=== PATIENT | female | born 1990 ===

== ENCOUNTER 2017-04-25 09:50 | Emergency (ER) | payer MEDICAID ==
[2017-04-25 09:54] VITALS: BMI 21.1
[2017-04-25 09:55] VITALS: BP 100/69; PULSE 77; RESP 17; TEMP 97.8; O2SAT 100
--- NOTE | 2017-04-25 10:49 | ED PDOC ---
HPI: Abdomen Time Seen by Provider: 04/25/17 09:59 Chief Complaint (Nursing): Abdominal Pain Chief Complaint (Provider): Suprapubic cramping History Per: Patient History/Exam Limitations: no limitations Onset/Duration Of Symptoms: Days Outside of [place] travel?: No Current Symptoms Are (Timing): Still Present Location Of Pain/Discomfort: Suprapubic Additional Complaint(s): 26 yo presents with suprapubic pain/cramping for a few days. Pt denies vaginal bleeding. Pt states she also has been nauseous intermittently. Pts LMP was NOV and she reports abnormal menses. PT states once she did not get menses for an entire year. Pt states she is sexually active and did not take a test at home. No urinary symptoms, no back pain. No vaginal discharge. Past Medical History Reviewed: Historical Data, Nursing Documentation, Vital Signs Vital Signs: Last Vital Signs Temp 97.8 F 04/25/17 09:54 Pulse 77 04/25/17 09:54 Resp 17 04/25/17 09:54 BP 100/69 04/25/17 09:54 Pulse Ox 100 04/25/17 10:53 - Medical History PMH: No Chronic Diseases - Surgical History Surgical History: No Surg Hx - Family History Family History: States: Unknown Family Hx - Living Arrangements Living Arrangements: With Family - Social History Current smoker - smoking cessation education provided: No - Immunization History Hx Tetanus Toxoid Vaccination: No Hx Influenza Vaccination: No Hx Pneumococcal Vaccination: No - Home Medications Home Medications: Ambulatory Orders Medication Instructions Recorded Ibuprofen 600 mg PO Q8 #30 tab 07/14/15 Naproxen [Naprosyn] 1 tab PO BID PRN #25 tab 12/10/15 - Allergies Allergies/Adverse Reactions: Allergies Allergy/AdvReac Type Severity Reaction Status Date / Time No Known Allergies Allergy Verified 12/10/15 23:02 Review of Systems ROS Statement: Except As Marked, All Systems Reviewed And Found Negative Constitutional: Negative for: Fever, Chills Gastrointestinal: Positive for: Nausea Genitourinary Female: Positive for: Pelvic Pain Physical Exam - Reviewed Nursing Documentation Reviewed: Yes Vital Signs Reviewed: Yes - Physical Exam Appears: Positive for: Well, Non-toxic, No Acute Distress Head Exam: Positive for: ATRAUMATIC, NORMAL INSPECTION, NORMOCEPHALIC Skin: Positive for: Normal Color, Warm, DRY Eye Exam: Positive for: Normal appearance ENT: Positive for: Normal ENT Inspection Neck: Positive for: Normal, Painless ROM Cardiovascular/Chest: Positive for: Regular Rate, Rhythm Respiratory: Positive for: CNT, Normal Breath Sounds Gastrointestinal/Abdominal: Positive for: Normal Exam, Bowel Sounds, Soft. Negative for: Tenderness Back: Positive for: Normal Inspection Extremity: Positive for: Normal ROM Neurologic/Psych: Positive for: Alert, Oriented - Laboratory Results Result Diagrams: 04/25/17 11:32 04/25/17 11:32 - ECG O2 Sat by Pulse Oximetry: 100 Medical Decision Making Medical Decision Makin - Urine result given to provider. (+) . New orders placed. US - 10 weeks and 4-6 days Urine without signs of infection, urine culture ordered. Disposition - Clinical Impression Clinical Impression: Abdominal pain affecting - Patient ED Disposition Is Patient to be Admitted: No - Disposition Disposition: Routine/Home Disposition Time: 12:29 Condition: GOOD Additional Instructions: Please begin taking vitamins. Please follow-up with DECISION SUPPORT ANALYST for care. Instructions: Round Ligament Pain Forms: [facility] (Danish)
[2017-04-25 11:39] LABS: HEMOGLOBIN 11.7 g/dL (12.0-16.0); MEAN CELL VOLUME 84.3 fl (81.0-99.0); MEAN CORPUSCULAR HEMOGLOBIN 28.1 pg (27.0-31.0); MEAN CORPUSCULAR HGB CONC 33.3 g/dL (33.0-37.0); RBC 4.17 Mil/uL (3.80-5.20); RED CELL DISTRIBUTION WIDTH 12.9 % (11.5-14.5); WHITE BLOOD COUNT 8.8 K/uL (4.8-10.8)
[2017-04-25 11:53] LABS: ALB/GLOB RATIO 1.3 (1.0-2.1); ALBUMIN 3.5 g/dL (3.5-5.0); ALT/SGPT 28 U/L (9-52); AST/SGOT 21 U/L (14-36); BLOOD UREA NITROGEN 11 mg/dl (7-17); CALCIUM 8.7 mg/dL (8.4-10.2); GFR AFRICAN-AMERICAN > 60; GFR NON-AFRICAN AMERICAN > 60
--- NOTE | 2017-04-25 12:34 | US ---
PROCEDURE: OB Pelvic Ultrasound HISTORY: cramping, LMP december (abnormal menses) LMP: 01/02/2017 COMPARISON: None available. FINDINGS: UTERUS: Gestational sac: Single intrauterine gestation. Measures 5.1 cm compatible with estimated gestational age of 10 weeks, 6 days Yolk sac: Measures 0.3 cm pole: [place]-rump length measures 3.7 cm compatible with estimated gestational age of 10 weeks, 4 days Heart rate: 158 bpm. age (Ultrasound estimated): 10 weeks, 5 days [place]essa-gestational hemorrhage: None. Date of delivery (Ultrasound estimated) : 11/16/2017 Uterus measures 11.4 x 10.7 x 8.0 cm. Anteverted. Normal in size and appearance. CERVIX: Measures 5.0 cm. Long and closed. No cervical abnormality seen. RIGHT OVARY: Measures 4.1 x 4.2 x 2.6 cm. 2.7 x 2.4 x 2.5 cm corpus luteum. No mass lesion. Normal flow. LEFT OVARY: Measures 3.7 x 2.7 x 2.1 cm. No solid mass. Normal flow. FREE FLUID: None. OTHER FINDINGS: None. IMPRESSION: Single viable intrauterine gestation with average ultrasound age of 10 weeks, 5 days. heart rate 150 beats per minute. Cervix long and closed.
== END 2017-04-25 12:39 | disposition home or self-care (01) ==
LOC: H.ER 09:50
DX: O26.899 Other specified pregnancy related conditions, unspecified trimester (principal)

== ENCOUNTER 2017-11-16 01:56 | Inpatient (IN) | payer OTHER ==
[2017-11-16] MEDS: Lactated Ringer's 1,000 ML IV ONE ×2 (02:00→03:00)
[2017-11-16] MEDS ORDERED: Oxytocin 30 UNIT 30 UNITS/500 ML BAG IV ONE ×2 (02:11→07:53)
[2017-11-16] MEDS ORDERED: OXYTOCIN/0.9 % NS 20 UNIT/1,000 ML BAG IV SCH (02:15)
[2017-11-16] MEDS ORDERED: Fentanyl/Bupivacaine HCl 250 ML EPI ONE (02:27)
[2017-11-16 02:46] LABS: HEMOGLOBIN 11.7 g/dL (12.0-16.0); MEAN CELL VOLUME 85.8 fl (81.0-99.0); MEAN CORPUSCULAR HEMOGLOBIN 28.3 pg (27.0-31.0); RBC 4.12 Mil/uL (3.80-5.20); RED CELL DISTRIBUTION WIDTH 13.4 % (11.5-14.5); WHITE BLOOD COUNT 10.5 K/uL (4.8-10.8)
[2017-11-16] MEDS: Lactated Ringer's 1,000 ML IV SCH ×2 (04:02→06:05)
[2017-11-16] MEDS ORDERED: Lidocaine 2% MPF (5 ml) Inj ONE (07:07)
--- NOTE | 2017-11-16 07:48 | OBADHP ---
Datetime: 11/16/2017 02:51 Admit Comment, IP Provider: 27 year old at 40 weeks (confirmed by LMP 01/02/17) presents for increasing intensity of uterine contractions. She denies vaginal bleeding and loss of fluid. Good fe oksana movement. First labor precipitous, (2002) after 3 hours of labor. 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 PMH: Denies Family Hx: Denies Social: Denies tob, EtOH, illicit drugs Surgical Hx: Denies Allergies: NKDA Labs: HIV neg HbaAg neg GBS neg Rubella immune GC neg CL neg RPR neg Blood type O+, antibody neg PE: uncomfortable CV: RRR, no murmur Resp: no respiratory distress Abdominal: no tenderness to palpation Pelvic: (chaoerone present) no external lesions, 7cm/80%/0 station Assessment: 27 year old at 40 weeks (confirmed by LMP 01/02/17) presents for increasing intensity of u terine contractions. Plan: -Dr. Charly Niño made aware of patient status -Admit to L and D for progression of labor -EFM -Labs -IVF -Pain management Case discussed with Dr. Niño ---Rajni Jernigan PGY1, Family Medicine Pelvic Type - PN: Adequate Extremities - PN: Normal Abdomen - PN: Normal Back - PN: Normal Breast - PN: Not Done Lungs - PN: Normal Heart - PN: Normal Thyroid - PN: Not Done Neurologic - PN: Not Done HEENT - PN: Normal General - PN: Normal FHR - Baseline A Provider: 130 Vital Signs Provider: Within Normal Limits IP Chief Complaint: Uterine contractions; Maternal discomfort NICHD Variability Prov Fetus A: Moderate 6-25bpm NICHD Accel Fetus A IP Provider: [id number] FHR Category Provider Fetus A: Category I NICHD Decel Fetus A IP Provider: None Dilatation, Provider: 7 Effacement, Provider: 80 Station, Provider: 0 Genitourinary Exam: Not Done DTRs - PN: Not Done IP Adm Impression: Term, intrauterine ; Active labor IP Admit Plan: Admit to unit; Initiate labor protocol Datetime: 11/16/2017 02:16 Membranes, Provider: Isabella
[2017-11-16] MEDS ORDERED: Acetaminophen-Codeine 300/30 mg Tab PO PRN (07:53)
[2017-11-16] MEDS ORDERED: Oxycodone/Acetaminophen 5/325 mg Tab PO PRN (07:53)
[2017-11-16] MEDS ORDERED: Benzocaine/Menthol SPRAY TOP PRN (07:53)
--- NOTE | 2017-11-16 07:59 | OBDS ---
DELIVERY PERSONNEL Delivery Doctor: Starla Niño MD Operations Manager Station: Michelle Alexandra RN MATERNAL INFORMATION Delivery Anesthesia: Epidural Estimated Blood Loss (ml): 300 ml Placenta Cultured: No Maternal Complications: None Provider Comments: delivery olive baby boy 9/9 clear fluid small periuretheral tear LABOR SUMMARY EDC: 11/16/2017 00:00 No. Babies in Womb: 1 Attempted: No Labor Anesthesia: None LABOR INFORMATION Reason for Induction: Not Applicable Onset of Labor: 11/16/2017 01:10 Complete Dilatation: 11/16/2017 07:00 Group B Beta Strep: Negative Steroids Given: None Reason Steroids Not Administered: Not Applicable MEMBRANES Membranes Rupture Method: Artificial Rupture of Membranes: 11/16/2017 04:07 Length of Rupture (hrs): 3.42 Amniotic Fluid Color: Clear Amniotic Fluid Amount: Moderate Amniotic Fluid Odor: Normal STAGES OF LABOR Stage 1 hrs: 5 Stage 1 min: 50 Stage 2 hrs: 0 Stage 2 min: 32 Stage 3 hrs: 0 Stage 3 min: 3 Total Time in Labor hrs: 6 Total Time in Labor min: 25 VAGINAL DELIVERY Episiotomy: None Laceration Extension: N/A Laceration Type: Periurethral Count Comment: correct BABY A INFORMATION Delivery Date/Time: 11/16/2017 07:32 Method of Delivery: Vaginal Born in Route : No : N/A Forceps: N/A Vacuum Extraction: N/A Shoulder Dystocia : No SHOULDER DYSTOCIA BABY A Delivery Date/Time: 11/16/2017 07:32 PRESENTATION/POSITION BABY A Presentation: Cephalic PLACENTA INFORMATION BABY A Placenta Delivery Time : 11/16/2017 07:35 Placenta Method of Delivery: Spontaneous Placenta Status: Delivered SCORES BABY A Heart Rate 1 min: >100 bpm Resp Effort 1 min: Good Cry Reflex Irritability 1 min: Cough or Sneeze or Pulls Away Muscle Tone 1 min: Active Motion Color 1 min: [place], Extremities Blue Resuscitation Effort 1 min: Tactile Stimulation SCORE 1 MIN: 9 Heart Rate 5 min: >100 bpm Resp Effort 5 min: Good Cry Reflex Irritability 5 min: Cough or Sneeze or Pulls Away Muscle Tone 5 min: Active Motion Color 5 min: [place], Extremities Blue Resuscitation Effort 5 min: N/A SCORE 5 MIN: 9 INFORMATION BABY A Gestational Age at Delivery: 40.0 Gestational Status: Term Outcome : Liveborn Infant Condition : Stable Sex: Male WEIGHT/LENGTH BABY A Birthweight (gms): 3030 Weight (lb): 6 Weight (oz): 11 CORD INFORMATION BABY A No. Cord Vessels: 3 Nuchal Cord : N/A Cord Blood Taken: Yes Infant Suction: Mouth
[2017-11-16] MEDS: Oxycodone/Acetaminophen 5/325 mg Tab PO PRN (10:31)
--- NOTE | 2017-11-17 16:46 | OBPPN ---
Datetime: 11/17/2017 16:42 PP Pain Prov: Within normal limits PP Nausea Prov: Denies PP Flatus Prov: Yes PP BM Prov: No PP Breasts Prov: Normal PP Heart Prov: Normal PP Lungs Prov: Normal PP Abdomen/Uterus Prov: Normal PP Lochia Prov: Normal PP Vulva/Perineum Prov: Normal PP CVA Tenderness Prov: Normal PP Extremities Prov: Normal PP Progress Prov: Normal PP Impression Prov: Normal progression PP Plan Prov: Continue present management PP Progress Note Prov: stable ppd1 continue present care IP PP Procedures: None Vital Signs Provider PP: Reviewed; Within Normal Limits
[2017-11-17] MEDS: Oxycodone/Acetaminophen 5/325 mg Tab PO PRN (21:35)
--- NOTE | 2017-11-18 14:08 | OBPPN ---
Datetime: 11/18/2017 14:06 PP Pain Prov: Within normal limits PP Nausea Prov: Denies PP Flatus Prov: Yes PP BM Prov: Yes PP Breasts Prov: Normal PP Heart Prov: Normal PP Lungs Prov: Normal PP Abdomen/Uterus Prov: Normal PP Lochia Prov: Normal PP Vulva/Perineum Prov: Normal PP CVA Tenderness Prov: Normal PP Extremities Prov: Normal PP Progress Prov: Normal PP Impression Prov: Normal progression PP Plan Prov: Continue present management PP Progress Note Prov: stable [id number] present care IP PP Procedures: None Vital Signs Provider PP: Reviewed; Within Normal Limits
--- NOTE | 2017-11-18 14:11 | OBDCSUM ---
Datetime: 11/18/2017 14:08 Discharged to, Provider: Home Follow up at, Provider: Dr Varghese Disch Instr Diet: Regular Discharge Instructions, Provider: Routine instructions given Discharge Time: 11/18/2017 14:08 Follow up in weeks, Provider: 5-6 weeks in office Disch Referrals: None Disch Activity Restrictions: No exercising; No lifting; No driving; Minimize walking; Minimize stair -climbing; No sexual activity; Nothing in vagina - Halma, tampons, douche Discharge Comment, Provider: [place] home today rto 5-6 weeks call office if any problems Contraception after Delivery: Undecided Datetime: 11/18/2017 14:01 Discharged to, Provider: Home Follow up at, Provider: Dr Varghese Disch Instr Activity: Normal activity Disch Instr Diet: Regular Follow up in weeks, Provider: 4-6 weeks Disch Activity Restrictions: No sexual activity; Nothing in vagina - Halma, tampons, douche
[2017-11-18 23:06] VITALS: BP 95/66; PULSE 80; RESP 18; TEMP 98.1; O2SAT 99
== END 2017-11-18 15:00 | disposition home or self-care (01) | DRG 373 ==
LOC: H.EROB2 01:56 → H.L&D 02:10 → H.OB/GYN 09:32
PROVIDERS: ADMIT Specialist; ATTEND Specialist
PROC: 10E0XZZ Delivery of Products of Conception, External Approach (ICD-10-PCS; principal; 2017-11-16)
PROC: 10E0XZZ Delivery of Products of Conception, External Approach (ICD-10-PCS; 2017-11-16)
PROC: 4A1HXCZ Monitoring of Products of Conception, Cardiac Rate, External Approach (ICD-10-PCS; 2017-11-16)
DX: O71.82 Other specified trauma to perineum and vulva (principal); Z3A.40 40 weeks gestation of pregnancy; Z37.0 Single live birth